=== PATIENT | female | born 1940 ===

== ENCOUNTER 2018-10-11 06:27 | Day surgery (SDC) | payer MEDICARE ==
[2018-10-11] MEDS ORDERED: Midazolam* 1 MG/ML 2 ML VIAL (2 MG) ONE (07:39)
[2018-10-11 08:24] VITALS: BP 103/54
[2018-10-11] MEDS ORDERED: Cyclopentolate 1% OPTH.SOL* 2 ML BTL ONE (09:49)
[2018-10-11] MEDS ORDERED: Lidocaine 2% w/ EPI 1:200,000* 20 ML SDV VIAL ONE (09:49)
[2018-10-11] MEDS ORDERED: Povidone Iodine 5% OPTH* 30 ML BTL ONE (09:49)
[2018-10-11] MEDS ORDERED: Proparacaine 0.5% OPHTH.SOL* 15 ML BTL ONE (09:49)
[2018-10-11] MEDS ORDERED: Ketorolac 0.5% OPHTH (NF) 0.5 % 5 ML BTL ONE (09:49)
[2018-10-11] MEDS ORDERED: Neomycin/Polymy/Dex OPTH.SUSP* MAXITROL 0.1% 5 ML ONE (09:49)
[2018-10-11] MEDS ORDERED: acetaZOLAMIDE TAB* 250 MG ONE (09:49)
[2018-10-11] MEDS ORDERED: Lidocaine 1% MPF ** 5 ML VIAL ONE (09:49)
[2018-10-11] MEDS ORDERED: Phenylephrine OPHTH SOL 2.5%* 2 ML ONE (09:49)
--- NOTE | 2018-10-11 10:26 | OP ---
OPERATIVE NOTE: DATE OF OPERATION: 10/11/18 DATE OF : 36 SURGEON: Xavi Davis M.D. PREOPERATIVE DIAGNOSIS: Cataract, left eye. POSTOPERATIVE DIAGNOSIS: Cataract, left eye. OPERATIVE PROCEDURE: Extracapsular cataract extraction with intraocular lens implant, left eye. PROCEDURE: The patient was brought to the operating room after being given 1/2% Alcaine with epineph rine drops in the preoperative area. The eye was prepped and draped in the usual sterile fashion. S terile drape and eyelid speculum were placed. Again, topical 1/2% Alcaine with epinephrine was given . A paracentesis incision was made at the 3 o'clock position with the No.75 blade. Clear cornea inc ision 2.2 x 2.2-mm was created at the 6 o'clock position starting at the anterior limbus using the 2. 2-mm keratome. The anterior chamber was irrigated with 0.4 mL of 1% non-preservative intracameral li docaine and filled with DisCoVisc. A capsulorrhexis was completed using the cystotome and the Utrata forceps. Hydrodissection was performed with balanced salt solution. The lens nucleus was removed wi th the Phacoemulsification handpiece without incident. Cortex was removed with the irrigation-aspira tion handpiece. The capsular bag was re-inflated using DisCoVisc and an [id number] implant was insert ed with the shooter, oriented to the 57 degree meridian. All measurements were checked with ORA. Th e irrigation- aspiration handpiece was used to remove all residual DisCoVisc. The eye was refilled w ith balanced salt solution and the wound checked and found to be watertight. Topical Maxitrol drops were given. [id number]/[facility] #: [id number]
== END 2018-10-11 08:37 | disposition home or self-care (01) ==
LOC: OREAST 06:27
PROVIDERS: ATTEND Specialist
DX: H25.812 Combined forms of age-related cataract, left eye (principal); H04.123 Dry eye syndrome of bilateral lacrimal glands; I25.10 Atherosclerotic heart disease of native coronary artery without angina pectoris; R00.2 Palpitations
CPT/HCPCS: A9270-GY; J2250; V2787